=== PATIENT | female | born 1975 | race African-American/Black ===

== ENCOUNTER 2021-02-25 10:38 | Emergency (ER) | payer MEDICAID, OTHER ==
[~2021-02-25] VITALS: Ht 165.1 cm; Wt 100.0 kg
[2021-02-25] MEDS ORDERED: CEPH500C2 MT (13:54)
[2021-02-25] MEDS ORDERED: IBUP-2030 MT (13:54)
[2021-02-25] MEDS ORDERED: IBUPROFEN 800MG TABLET PO ONE (14:00)
[2021-02-25 14:41] VITALS: BP 180/84
== END 2021-02-25 15:02 | disposition home or self-care (01) ==
LOC: ER 10:51
DX: L02.412 Cutaneous abscess of left axilla (principal); I10 Essential (primary) hypertension
CPT/HCPCS: 99283

== ENCOUNTER 2021-12-24 13:23 | Emergency (ER) | payer MEDICAID ==
[~2021-12-24] VITALS: Ht 160 cm; Wt 100.0 kg
[~2021-12-24 13:23] MED LIST: CEPH500C2 MT; IBUP-2030 MT
[2021-12-24] MEDS ORDERED: LORAZEPAM 1MG TABLET PO ONE (15:00)
[2021-12-24 15:30] VITALS: BP 112/78
[2021-12-24] MEDS ORDERED: LORA-250 MT (15:47)
== END 2021-12-24 15:30 | disposition home or self-care (01) ==
LOC: ER 13:23
DX: F41.0 Panic disorder [episodic paroxysmal anxiety] (principal); I10 Essential (primary) hypertension; Z98.890 Other specified postprocedural states
CPT/HCPCS: 99283

== ENCOUNTER 2024-03-03 19:35 | Emergency (ER) | payer MEDICAID ==
[~2024-03-03] VITALS: Ht 162.6 cm; Wt 100.0 kg
[~2024-03-03 19:35] MED LIST changes: +LORA-250 MT
[2024-03-03 19:44] VITALS: O2SAT 100
[2024-03-03] MEDS ORDERED: [UNRECOGNIZED DRUG - CODE] MM (21:29)
[2024-03-03] MEDS: ACETAMINOPHEN 325MG TABLET PO ONE (21:30)
[2024-03-03 21:40] VITALS: BP 144/90; PULSE 88; RESP 17; TEMP 36.39180; O2SAT 100
== END 2024-03-03 23:46 | disposition home or self-care (01) ==
LOC: ER 19:35
DX: K14.6 Glossodynia (principal); I10 Essential (primary) hypertension; F41.9 Anxiety disorder, unspecified; K13.79 Other lesions of oral mucosa; Z98.890 Other specified postprocedural states
CPT/HCPCS: 99282

== ENCOUNTER 2024-05-06 19:26 | Emergency (ER) | payer MEDICAID ==
[~2024-05-06] VITALS: Ht 160 cm; Wt 109.0 kg
[~2024-05-06 19:26] MED LIST changes: +[UNRECOGNIZED DRUG - CODE] MM
[2024-05-06 19:58] VITALS: BP 178/91; PULSE 80; RESP 18; TEMP 98; O2SAT 100
[2024-05-07] MEDS: CYCLOBENZAPRINE 10MG TABLET PO ONE (01:05)
[2024-05-07] MEDS: ACETAMINOPHEN 500MG TABLET PO ONE (01:06)
[2024-05-07] MEDS: CYCLOBENZAPRINE 10MG TABLET PO NR (01:07)
[2024-05-07] MEDS: ACETAMINOPHEN 500MG TABLET PO NR (01:07)
[2024-05-07] MEDS ORDERED: NAPR-1176 MT (01:44)
[2024-05-07] MEDS ORDERED: CYCL10TA21 MT (01:44)
== END 2024-05-07 02:41 | disposition home or self-care (01) ==
LOC: ER 19:26
DX: M71.21 Synovial cyst of popliteal space [Baker], right knee (principal); I10 Essential (primary) hypertension; Z98.890 Other specified postprocedural states
CPT/HCPCS: 73562; 93971; 99284